=== PATIENT | male | born 1955 | race Caucasian/White ===

== ENCOUNTER 2021-11-19 21:47 | Inpatient (IN) | payer MEDICARE ==
[~2021-11-19] VITALS: Ht 175.3 cm; Wt 109.0 kg
--- NOTE | 2021-11-19 23:00 | NUR ---
Patient in room PCU 3018. I have received report from Kayleen MURRIETA[facility] and had the opportunity to ask questions and assume patient care.
--- NOTE | 2021-11-19 23:45 | NUR ---
Received pt as a direct admission from [facility]. VS stable with O2 saturating at 93 on room air. pt on heparin drip at 26 ml/hr upon arrival. comfort and safety measures provided.
[2021-11-20] VITALS (11 sets, daily range): BP systolic 114–154; BP diastolic 67–83
[2021-11-20] MEDS ORDERED: ASPI81TA52 PO (00:06)
[2021-11-20] MEDS ORDERED: SPIR25TA PO (00:06)
[2021-11-20] MEDS ORDERED: CARV3.12 PO (00:16)
[2021-11-20] MEDS ORDERED: AMLO-139 PO (00:16)
[2021-11-20] MEDS ORDERED: magnesium hydroxide 30ml (MOM) UD suspension PO PRN (00:45)
[2021-11-20] MEDS ORDERED: potassium CL 10mEq/100ml bag 100 ML IV PRN (00:45)
[2021-11-20] MEDS ORDERED: magnesium 2GM in 50ml NS 50 ML IV PRN (00:45)
[2021-11-20] MEDS ORDERED: magnesium 4gm in 100ml NS 100 ML IV PRN (00:45)
[2021-11-20] MEDS ORDERED: potassium Cl 20 mEq SR tablet PO PRN ×2 (00:45)
[2021-11-20] MEDS ORDERED: magnesium Cl slow-release 64mg tablet PO PRN (00:45)
[2021-11-20] MEDS ORDERED: acetaminophen 325mg tablet PO PRN (00:45)
[2021-11-20] MEDS ORDERED: ondansetron/PF 4mg/2ml inj IV PRN (00:45)
[2021-11-20] MEDS ORDERED: PERFLUTREN PROTEIN-A MICROSPHR (Optison) 0.22 MG/ML 3ML VIAL IV PRN (00:45)
[2021-11-20] MEDS ORDERED: heparin 25,000 UNIT/250ml bag 250 ML IV SCH (00:45)
[2021-11-20] MEDS ORDERED: mag hydrox/Alum hydrox/simeth 30ml oral suspension PO PRN (00:45)
[2021-11-20] MEDS ORDERED: normal saline 1000ml 1,000 ML IV SCH (00:45)
[2021-11-20 02:21] LABS: APTT 23 SECONDS (22-32)
[2021-11-20 02:27] LABS: HEMOGLOBIN A1C 5.5 % (4.5-6.2)
[2021-11-20 02:29] LABS: MAGNESIUM 2.1 MG/DL (1.5-2.4); POTASSIUM 4.1 MMOL/L (3.5-5.1)
--- NOTE | 2021-11-20 03:00 | NUR ---
troponins at 3245. Dr Nova was informed.
[2021-11-20] MEDS: heparin 10,000 units/1 ML INJ IV PRN ×2 (03:43→09:43)
--- NOTE | 2021-11-20 06:38 | NUR ---
Problems reprioritized. Patient report given, questions answered & plan of care reviewed with Jocelyn MURRIETA.
--- NOTE | 2021-11-20 06:46 | NUR ---
Patient in room PCU 3018. I have received report from Elizabeth Murphy and had the opportunity to ask questions and assume patient care.
--- NOTE | 2021-11-20 07:30 | NUR ---
Dr. Castro made aware via spoke messenger that patient have a critical Troponin 0 hr-1932 called in at 0725. Awaiting recommendations.
[2021-11-20] MEDS: K and/or MAG REPLACEMENT MC SCH ×2 (08:00→19:58)
[2021-11-20] MEDS ORDERED: amLODIPine 5mg tablet PO SCH (08:00)
[2021-11-20] MEDS: docusate sod 100mg capsule PO SCH ×2 (09:22→19:57)
[2021-11-20] MEDS: aspirin 81mg, enteric-coated 1 TAB TABLET.DR PO SCH (09:22)
[2021-11-20] MEDS: carVEDilol 3.125mg tablet PO SCH ×2 (09:23→19:57)
[2021-11-20 09:59] LABS: CHOL/HDL RATIO 4.5 (0.00-4.99); CHOLESTEROL 192 MG/DL (0-200); HDL CHOLESTEROL 43 MG/DL (35-60); LDL CHOLESTEROL 112 MG/DL (50-100); TRIGLYCERIDES 286 MG/DL (20-135)
--- NOTE | 2021-11-20 12:05 | NUR ---
Dr. Castro made aware via spoke messenger that a troponin of 1194 called in at 1125 for patient.
[2021-11-20] MEDS ORDERED: LIDOcaine 1% (10mg/ml)w/preservative injection 20ml MDV ONE (12:37)
[2021-11-20] MEDS ORDERED: midazolam 1 mg/ML 2ml injection ONE ×2 (12:37→13:15)
[2021-11-20] MEDS ORDERED: iohexol 350MG/ML 100ml bottle IV ONE (12:37)
[2021-11-20] MEDS ORDERED: fentaNYL/PF 50MCG/1 ML 2ML syringe ONE (12:37)
[2021-11-20] MEDS ORDERED: iohexol 350 MG/ML 50ML vial IV ONE (12:37)
[2021-11-20] MEDS ORDERED: diphenhydrAMINE 50 mg/ml inj ONE (13:07)
[2021-11-20] MEDS ORDERED: nitroGLYCERIN-Tridil 50MG/D5W 250 ML IV ONE (13:24)
[2021-11-20] MEDS ORDERED: AMLO10TA PO (15:06)
--- NOTE | 2021-11-20 18:32 | NUR ---
Dr. Castro made aware via [employer] that a troponin-835 called in for patient at 1758.
--- NOTE | 2021-11-20 19:44 | NUR ---
Problems reprioritized. Patient report given, questions answered & plan of care reviewed with Juani.
[2021-11-21 02:00] VITALS: BP 137/75
[2021-11-21 06:00] VITALS: BP 136/93
[2021-11-21 06:32] LABS: BASOPHILS % (AUTO) 0.5 % (0-1); EOSINOPHILS # (AUTO) 0.5 X10'3 (0-0.9); HEMATOCRIT 44.8 % (42.0-52.0); HEMOGLOBIN 15.4 g/dl (14.0-17.9); LYMPHOCYTES % (AUTO) 22.6 % (21-51); MEAN CORPUSCULAR HEMOGLOBIN 32.4 PG (27.0-31.0); MEAN CORPUSCULAR HGB CONC 34.3 g/dL (33.0-36.5); MEAN CORPUSCULAR VOLUME 94.3 FL (78-98); MEAN PLATELET VOLUME 7.9 FL (7.4-10.4); MONOCYTES # (AUTO) 0.8 X10'3 (0-0.9); MONOCYTES % (AUTO) 9.3 % (2-12); NEUTROPHILS # (AUTO) 5.6 X10'3 (1.8-7.7); NEUTROPHILS % (AUTO) 61.6 % (42-75); PLATELET COUNT 259 X10'3 (140-440); RED BLOOD COUNT 4.75 X10'6 (4.70-6.10); RED CELL DISTRIBUTION WIDTH 13.4 % (11.5-14.5)
--- NOTE | 2021-11-21 06:39 | NUR ---
Problems reprioritized. Patient report given, questions answered & plan of care reviewed with Jocelyn MURRIETA .
[2021-11-21 07:15] LABS: ALANINE AMINOTRANSFERASE 46 U/L (12-78); ALBUMIN 3.6 G/DL (3.4-5.0); ALBUMIN/GLOBULIN RATIO 1.2 (1.1-1.5); ALKALINE PHOSPHATASE 65 IU/L (46-116); ANION GAP 10 (8-16); ASPARTATE AMINO TRANSFERASE 24 U/L (10-37); BILIRUBIN,TOTAL 0.3 MG/DL (0.1-1.0); BLOOD UREA NITROGEN 19 MG/DL (7-18); BUN/CREATININE RATIO 21.3 (5.4-32.0); CALCIUM 8.6 MG/DL (8.5-10.1); CHLORIDE 109 MMOL/L (99-107); CHOLESTEROL 212 MG/DL (0-200); CREATININE 0.89 MG/DL (0.60-1.10); GLUCOSE 88 MG/DL (70-104); HDL CHOLESTEROL 42 MG/DL (35-60); LDL CHOLESTEROL 116 MG/DL (50-100); POTASSIUM 4.4 MMOL/L (3.5-5.1); SODIUM 145 MMOL/L (135-145); TOTAL CARBON DIOXIDE 26.5 MMOL/L (24-32); TOTAL PROTEIN 6.7 G/DL (6.4-8.2); TRIGLYCERIDES 181 MG/DL (20-135); eGFR 86 ML/MIN
[2021-11-21] MEDS: K and/or MAG REPLACEMENT MC SCH (08:00)
[2021-11-21] MEDS ORDERED: atorvastatin 20mg tablet PO SCH (08:00)
[2021-11-21] MEDS: docusate sod 100mg capsule PO SCH (08:13)
[2021-11-21] MEDS: aspirin 81mg, enteric-coated 1 TAB TABLET.DR PO SCH (08:14)
[2021-11-21] MEDS: carVEDilol 3.125mg tablet PO SCH (08:27)
[2021-11-21] MEDS ORDERED: CLOP75TA15 PO (09:57)
[2021-11-21] MEDS ORDERED: ATOR20TA66 PO (09:57)
--- NOTE | 2021-11-21 11:17 | NUR ---
Patient d/c to go home with d/c instructions/directions printed and verbally given to patient. He verbalizes understanding and denied having any question for copywriter. Patient is aware to pick up attendant prescription medications sent to pharmacy by provider. IV line and satellite project site monitor removed. Surgical site to right groin noted clean, dry, and intact. He is accompanied to the lobby by PCT and with all personal belongings at the time of d/c with no distress.
== END 2021-11-21 11:00 | disposition home or self-care (01) | DRG 282 ==
LOC: PCU 3S 23:00
PROVIDERS: ADMIT Internal Medicine; ATTEND Internal Medicine
PROC: 4A023N7 Measurement of Cardiac Sampling and Pressure, Left Heart, Percutaneous Approach (ICD-10-PCS; principal; 2021-11-20)
PROC: B2111ZZ Fluoroscopy of Multiple Coronary Arteries using Low Osmolar Contrast (ICD-10-PCS; 2021-11-20)
PROC: B2151ZZ Fluoroscopy of Left Heart using Low Osmolar Contrast (ICD-10-PCS; 2021-11-20)
DX: I21.4 Non-ST elevation (NSTEMI) myocardial infarction (principal); E78.5 Hyperlipidemia, unspecified; I10 Essential (primary) hypertension; I25.119 Atherosclerotic heart disease of native coronary artery with unspecified angina pectoris; I25.2 Old myocardial infarction; Z79.02 Long term (current) use of antithrombotics/antiplatelets; Z79.82 Long term (current) use of aspirin; Z79.899 Other long term (current) drug therapy; Z95.5 Presence of coronary angioplasty implant and graft
CPT/HCPCS: 36415; 80053; 80061; 83036; 83735; 83880; 84132; 84484; 85025; 85347; 85610; 85730; 87081; 93306; 93458; 99152; 99153; A4620; A6258; C1760; C1769; G0378; J1200; J1644; J2250; J3010; J3490; J7030; Q9967